=== PATIENT | female | born 1945 ===

== ENCOUNTER 2017-06-25 19:48 | Observation (INO) | payer MEDICARE ==
--- NOTE | 2017-06-25 20:41 | ED PDOC ---
Arrival/HPI - General Chief Complaint: Dizziness/Lightheaded Time Seen by Provider: 06/25/17 20:29 Historian: Patient, Family - History of Present Illness Narrative History of Present Illness (Text): 06/25/17 20:29 A 71 year old female, whose past medical history includes , whom is accompanied by family, presents to the emergency department complaining of dizziness for 5 days. Patient reports dizziness is on and off, describing it as feeling unsteady. Per family, patient fell 3 days ago. 4 days ago, patient was taken to PMD for blood-work. Patient was sent by PMD for evaluation. Patient notes also, experiencing fatigue and weakness, and dizziness worsens when standing up. Also , when laying down, feet feel numb. Patient denies any headache, facial droop, speech changes, or any other complaints at this time. PMD: Dr. Workman Past Medical History - Provider Review Nursing Documentation Reviewed: Yes - Cardiac Hx Cardiac Disorders: Yes - Pulmonary Hx Respiratory Disorders: No - Neurological Hx Neurological Disorder: Yes Hx Vertigo: Yes - HEENT Hx HEENT Disorder: No - Renal Hx Renal Disorder: No - Endocrine/Metabolic Hx Endocrine Disorders: No - Hematological/Oncological Hx Blood Disorders: No - Integumentary Hx Dermatological Disorder: No - Musculoskeletal/Rheumatological Hx Musculoskeletal Disorders: Yes Hx Back Pain: Yes Hx Spinal Stenosis: Yes - Gastrointestinal Hx Gastrointestinal Disorders: Yes Hx Constipation: Yes - Genitourinary/Gynecological Hx Genitourinary Disorders: Yes Hx Incontinence: Yes - Psychiatric Hx Psychophysiologic Disorder: No Hx Substance Use: No - Surgical History Hx Cholecystectomy: Yes Hx Orthopedic Surgery: Yes (L HAND) Other/Comment: COLONOSCOPY - Anesthesia Hx Anesthesia: Yes - Suicidal Assessment Feels Threatened In Home Enviroment: No Family/Social History - Physician Review Nursing Documentation Reviewed: Yes Family/Social History: No Known Family HX Smoking Status: Never Smoked Hx Alcohol Use: No Hx Substance Use: No Allergies/Home Meds Allergies/Adverse Reactions: Allergies Penicillins Allergy (Verified 06/25/17 19:51) RASH Home Medications: Home Meds Medication Instructions Recorded Confirmed Alendronate [Fosamax] 70 mg PO MON 06/22/14 06/25/17 Aspirin [Aspirin Low Dose] 81 mg PO DAILY 06/22/14 06/25/17 Simvastatin 20 mg PO DAILY 06/22/14 06/25/17 Review of Systems - Physician Review All systems were reviewed & negative as marked: Yes - Review of Systems Constitutional: Fatigue, Other (weakness) Neurological: Dizziness, Other (numb feet when laying down). absent: Headache, Speech Changes, Facial Droop Physical Exam Vital Signs Reviewed: Yes Vital Signs Temp Pulse Resp BP Pulse Ox 06/25/17 19:52 98.7 F 88 16 115/78 97 Temperature: Afebrile Blood Pressure: Normal Pulse: Regular Respiratory Rate: Normal Appearance: Positive for: Well-Appearing Pain Distress: None Mental Status: Positive for: Alert and Oriented X 3 - Systems Exam Head: Present: Atraumatic, Normocephalic Neck: Present: Normal Range of Motion Respiratory/Chest: Present: Clear to Auscultation, Good Air Exchange. No: Respiratory Distress, Accessory Muscle Use Cardiovascular: Present: Regular Rate and Rhythm, Normal S1, S2. No: Murmurs Abdomen: No: Tenderness, Distention, Peritoneal Signs Back: Present: Normal Inspection Upper Extremity: Present: Normal Inspection, Normal ROM (5/5). No: Cyanosis, Edema Lower Extremity: Present: NORMAL PULSES (good distal pulses to dorsal aspect; feet warm to touch) Neurological: Present: GCS=15, CN II-XII Intact, Speech Normal. No: Other (no focal deficits; no nystagmus; no ataxia [id number] and [id number].) Skin: Present: Warm, Dry, Normal Color. No: Rashes Psychiatric: Present: Alert, Oriented x 3, Normal Insight, Normal Concentration Medical Decision Making ED Course and Treatment: 06/25/17 20:44 Impression: 71 year old female with dizziness. Plan: -- EKG -- Labs -- Reassess and disposition Progress Notes: EKG: Ordered, reviewed, and independently interpreted the EKG. Rate : 85 BPM Rhythm : NSR Interpretation : 1st AV block Comparison : No previous EKG for comparison. 06/25/17 21:10 Case discussed with SHREYA Felton, whom requests patient be admitted to telemetry floor, and have Dr. Calhoun for neuro consult. Patient also to have cardio consult. - Lab Interpretations Lab Results: 06/25/17 20:47 Lab Results 06/25/17 20:47: WBC 6.7, RBC 4.60, Hgb 13.6, Hct 40.4, MCV 87.8, MCH 29.6, MCHC 33.7, RDW 13.4, Plt Count 308, MPV 9.1, Gran % 58.6, Lymph % (Auto) 30.5, [place] % (Auto) 8.7 H, Eos % (Auto) 2.0, Baso % (Auto) 0.2, Gran # 3.90, Lymph # (Auto ) 2.0, [place] # (Auto) 0.6, Eos # (Auto) 0.1, Baso # (Auto) 0.01 - RAD Interpretation Radiology Orders: 06/25/17 20:49 HEAD W/O CONTRAST [CT] Stat - Scribe Statement The provider has reviewed the documentation as recorded by the Oneidaibbobby Sharif Provider Scribe Attestation: All medical record entries made by the Scribe were at my direction and personally dictated by me. I have reviewed the chart and agree that the record accurately reflects my personal performance of the history, physical exam, medical decision making, and the department course for this patient. I have also personally directed, reviewed, and agree with the discharge instructions and disposition. Disposition/Present on Arrival - Present on Arrival History of DVT/PE: No History of Uncontrolled Diabetes: No Urinary Catheter: No History of Decub. Ulcer: No History Surgical Site Infection Following: None - Disposition Referrals: Lola Workman MD [Primary Care Provider] - Follow up with primary Forms: [employer] (Qatari)
[2017-06-25 21:05] LABS: BASO # 0.01 K/mm3 (0.0-2.0); BASO % 0.2 % (0.0-3.0); EOS # 0.1 (0.0-0.7); GRAN # 3.9 (1.4-6.5); GRAN % 58.6 % (50.0-68.0); HEMOGLOBIN 13.6 g/dL (12.0-16.0); LYMPH % 30.5 % (22.0-35.0); MEAN CELL VOLUME 87.8 fl (80.0-105.0); MEAN CORPUSCULAR HEMOGLOBIN 29.6 pg (25.0-35.0); MEAN CORPUSCULAR HGB CONC 33.7 g/dl (31.0-37.0); MEAN PLATELET VOLUME 9.1 fl (7.0-11.0); MONO # 0.6 (0.1-0.6); MONO % 8.7 % (1.0-6.0); RBC 4.6 10^6/uL (3.5-6.1); RED CELL DISTRIBUTION WIDTH 13.4 % (11.5-14.5); WHITE BLOOD COUNT 6.7 10^3/ul (4.5-11.0)
[2017-06-25 21:15] LABS: ALB/GLOB RATIO 1.1 (1.1-1.8); ALBUMIN 3.9 g/dL (3.0-4.8); ALT/SGPT 28 U/L (7-56); AST/SGOT 24 U/L (14-36); BLOOD UREA NITROGEN 17 mg/dL (7-21); CALCIUM 9.2 mg/dL (8.4-10.5); GFR AFRICAN-AMERICAN > 60; GFR NON-AFRICAN AMERICAN > 60
[2017-06-25 21:21] LABS: PROTHROMBIN TIME 11.1 SECONDS (9.4-12.5)
[2017-06-25 21:22] LABS: INR 0.97 (0.93-1.08); PARTIAL THROMBOPLASTIN TIME 28.7 Seconds (25.1-36.5)
--- NOTE | 2017-06-25 23:03 | CT ---
EXAM: CT Head Without Intravenous Contrast CLINICAL HISTORY: 71 years old, female; Pain; Headache; Headache not specified; Additional info: Ataxia TECHNIQUE: Axial computed tomography images of the head/brain without intravenous contrast. All CT scans at this facility use one or more dose reduction techniques, viz.: automated exposure control; ma/kV adjustment per patient size (including targeted exams where dose is matched to indication; i.e. head); or iterative reconstruction technique. Coronal and sagittal reformatted images were created and reviewed. COMPARISON: No relevant prior studies available. FINDINGS: Brain: There is mild diffuse cerebral atrophy present, consistent with this patient's age. There is mild diffuse heterogeneity of the white matter attenuation, consistent with chronic white matter ischemic changes. No hemorrhage. Ventricles: The ventricular system demonstrates moderate diffuse compensatory enlargement. Bones/joints: Unremarkable. No acute fracture. Soft tissues: Unremarkable. Sinuses: There is minimal mucoperiosteal thickening in the right maxillary sinus, consistent with chronic sinusitis. Mastoid air cells: Unremarkable as visualized. No mastoid effusion. IMPRESSION: Age-related atrophy and chronic white matter ischemic changes, with no evidence of an acute intracranial abnormality.
[2017-06-25 23:15] LABS: HDL CHOLESTEROL 50 mg/dL (29-60)
[2017-06-25 23:27] LABS: LDL CHOLESTEROL 90 mg/dL (0-129)
[2017-06-26 01:24] VITALS: BMI 29.0
[2017-06-26 07:10] LABS: FREE T4 0.98 ng/dL (0.78-2.19)
--- NOTE | 2017-06-26 09:00 | HP ---
HISTORY OF PRESENT ILLNESS: The patient is a 71-year-old female who was seen in the office last week with complaint of feeling very dizzy, feels very unstable as if she is going to fall. She was given Antivert with no significant relief. They started outpatient workup, but she did not get appointments. She came to office again today, but she fell last night and hit her head against the dresser and got cut on both arms. She states when woke up this morning, she could not stand on her feet and lost balance and fell. Denies any headache. No history of numbness or weakness at any body parts. Not severely incontinent. The patient states recently she noted that she has been increasingly forgetful, so she ordered some mail-order medication, Provigil that she has been taking for almost a month. PAST MEDICAL HISTORY: Significant for, 1. Hypertension. 2. Hyperlipidemia. 3. Osteoporosis. ALLERGIES: SHE IS ALLERGIC TO PENICILLIN. MEDICATIONS AT HOME: She is on simvastatin 20 mg daily, aspirin 81 daily, Fosamax 70 mg once a week. REVIEW OF SYSTEMS: Significant for off an on Dizziness, not associated with any palpitation, headache or chest pain. PHYSICAL EXAMINATION: GENERAL: She is awake, alert, oriented, communicative. VITAL SIGNS: She is afebrile, pulse 88, respirations 16, blood pressure 115/78. LUNGS: Bilateral good airflow. No rhonchi or crackle. HEART: S1 and S2 audible. ABDOMEN: Soft. Nontender. No rebound. No guarding. NEUROLOGIC: The patient is awake, alert, oriented, communicative. LABORATORY EXAM: WBC is 6.7, hemoglobin 13, hematocrit 40, platelets 308. PT 11.1, INR 0.97. Chemistry: Sodium 140, potassium 4, chloride 105, CO2 of 26, BUN 17, creatinine 0.7, blood sugar of 166. ASSESSMENT: 1. Intermittent dizziness for 2 weeks resulting in multiple falls. 2. Unstable gait. Rule out neurological versus cardiac event. 3. History of hyperlipidemia. 4. Osteoporosis PLAN: The patient will be placed on observation. Neurological and cardiac workup have been ordered. We will keep the patient on aspirin. Will continue on simvastatin. Cardiology consult by Dr. Slaughter. Neuro consult by Dr. Calhoun has been requested. Lola Workman MD [facility] # [id number]
--- NOTE | 2017-06-26 09:05 | CARD ---
APPROVED REPORT EXAM: Two-dimensional and M-mode echocardiogram with Doppler and color Doppler. INDICATION DIZZINESS 2D DIMENSIONS Left Atrium (2D)3.4 (1.6-4.0cm)IVSd1.2 (0.7-1.1cm) LVDd3.9 (3.9-5.9cm)PWd1.2 (0.7-1.1cm) LVDs2.9 (2.5-4.0cm)FS (%) 26.0 % LVEF (%)51.6 (>50%) M-Mode DIMENSIONS Aortic Root2.70 (2.2-3.7cm)Aortic Cusp Exc.1.60 (1.5-2.0cm) Aortic Valve AoV Peak Oaaehpfe201.0cm/Cathie Peak GR.9mmHg Mitral Valve MV E Lzdoqlcw98.8cm/sMV A Gyartjsg252.0cm/sE/A ratio0.6 TDI E/Lateral E'0.0E/Medial E'0.0 Tricuspid Valve TR Peak [id number]/sRAP JAONSVVK51tuFvKZ Peak Gr.13mmHg [id number] LEFT VENTRICLE The left ventricle is normal size. There is mild concentric left ventricular hypertrophy. The left ventricular function is normal. The left ventricular ejection fraction is within the normal range. There is normal LV segmental wall motion. RIGHT VENTRICLE The right ventricle is normal size. The right ventricular systolic function is normal. ATRIA The left atrium size is normal. The right atrium size is normal. The interatrial septum is intact with no evidence for an atrial septal defect. AORTIC VALVE The aortic valve is normal in structure. No aortic regurgitation is present. There is no aortic valvular stenosis. MITRAL VALVE The mitral valve is normal in structure. There is no mitral valve regurgitation noted. TRICUSPID VALVE The tricuspid valve is normal in structure. There is no tricuspid valve regurgitation noted. PULMONIC VALVE The pulmonary valve is normal in structure. GREAT VESSELS The aortic root is normal in size. The IVC is normal in size and collapses >50% with inspiration. PERICARDIAL EFFUSION There is no pleural effusion. There is no pericardial effusion. <Conclusion> Normal chamber size. Mild concentric LVH. Normal LV systolic function. No valvular abnormalities seen.
--- NOTE | 2017-06-26 09:47 | US ---
PROCEDURE: Bilateral carotid artery duplex ultrasound HISTORY: Carotid stenosis syncope PHYSICIAN(S): Toney Hayes MD. TECHNIQUE: Duplex sonography and color-flow Doppler were used to evaluate the carotid bifurcations and limited segments of the vertebral arteries bilaterally. FINDINGS: The exam is somewhat limited by tortuous vessels. There is mild smooth heterogeneous plaque noted at the carotid bifurcations bilaterally. The peak systolic velocity in the proximal right internal carotid artery is 68 cm/sec. This corresponds to a 20 to 39% proximal right ICA stenosis. Normal systolic velocities are noted in the proximal right external carotid artery. There is antegrade flow in the dominant right vertebral artery. The peak systolic velocity in the proximal left internal carotid artery is 70 cm/sec. This corresponds to a 20 to 39% proximal left ICA stenosis. Normal systolic velocities are noted in the proximal left external carotid artery. There is antegrade flow in the left vertebral artery. IMPRESSION: 1. Bilateral 20-39% proximal ICA stenoses. 2. Antegrade flow in both vertebral arteries.
--- NOTE | 2017-06-26 11:21 | CARD ---
APPROVED REPORT EKG Measurement Heart [id number] <Conclusion> Sinus rhythm with 1st degree AV block Left axis deviation Nonspecific T wave abnormality Prolonged QT Abnormal ECG
--- NOTE | 2017-06-26 14:32 | CON ---
DATE: 06/26/2017 LOCATION: Patient is in room 268, bed 1. REASON FOR CONSULTATION: Syncope. HISTORY OF PRESENT ILLNESS: The patient is a 71-year-old female who was suffering of dizziness off and on. She states at home, her dizziness got worse and she fell down. She knew she was falling down. The patient denies any chest pain, shortness of breath, palpitation, spinning of the room associated with this episode. No history of nausea, vomiting or urinary incontinence. PAST HISTORY: Positive for high cholesterol and osteoporosis. The patient had carpal tunnel surgery, appendectomy and . PERSONAL HISTORY: Denies smoking, denies drinking. MEDICATIONS AT HOME: Simvastatin 20 daily, aspirin 81 daily, Fosamax 70 mg once a week on Mondays. REVIEW OF SYSTEMS: All other systems reviewed, positive mentioned in the history, others were negative. PHYSICAL EXAMINATION VITAL SIGNS: On examination, blood pressure 156/99, earlier pressure of 134/94, yesterday blood pressure 135/72; respirations 20; pulse 82; temperature 98.3. HEENT: Head is normocephalic. Eyes: Pupils normal. Conjunctivae normal. Nose and throat normal. NECK: JVP low. Carotids equal. THORAX: AP diameter normal. LUNGS: Clear. CARDIOVASCULAR: S1 and S2. ABDOMEN: Soft, nontender. No organomegaly. Bowel sounds normal. EXTREMITIES: No clubbing. No cyanosis. LABORATORY DATA: WBC 6.7, hemoglobin 13.6, hematocrit 40.4, platelet 308. Sodium 140, potassium 4, BUN 17, creatinine 0.7. Random sugar 166, repeat sugar 98. AST, ALT, total protein, albumin are normal. Triglyceride 191, cholesterol 176, LDL 90, HDL 50. TSH is 5.49. Had CT scan, no significant abnormality. Carotid ultrasound showed bilateral 20% to 39% proximal ICA stenosis, antegrade flow in both vertebral arteries. EKG showed regular sinus rhythm, prolonged [place], left ventricular hemiblock, nonspecific ST-T changes. Echocardiogram done this morning showed normal chamber size and mild concentric left ventricular hypertrophy, normal LV systolic function and no significant valvular abnormality seen. DIAGNOSES: Dizziness, fall due to dizziness, history of high cholesterol, history of osteoporosis, questionable history of hypertension. PLAN: Will request Orthostatic BP Readings. The patient is getting meclizine 25 mg p.o. t.i.d., aspirin 81 mg daily, atorvastatin 10 mg p.o. daily. We will continue present therapy and we will monitor; so far, on monitor, there is no arrhythmia. Neurology consult with Dr. Calhoun has been already requested. We will continue present therapy and continue to monitor for any arrhythmia. We will follow with you. Yazmin Obrien MD [facility]
--- NOTE | 2017-06-26 15:55 | PN ---
DATE: 06/26/2017 SUBJECTIVE: The patient is 71-year-old, was admitted last night because of persisting dizziness, multiple falls. The patient's family noted that she is having some memory issues and getting forgettable. Also has thickening of the skin. Does not complain of any nausea. PHYSICAL EXAMINATION: VITAL SIGNS: The patient is afebrile, pulse 87, respirations 20, lying blood pressure is 121/80, sitting is 148/78 and standing is 180/94. LUNGS: Bilateral good airflow. No rhonchi or crackles. HEART: S1 and S2 audible. ABDOMEN: Soft, nontender. No rebound, no guarding. NEUROLOGICAL: The patient is awake, alert, oriented, communicative, ambulatory. LABORATORY DATA: Her uric acid is 5.9. Her TSH is 5.49. She has carotid Doppler done that shows bilateral 20 to 39% proximal ICA stenosis. CT scan of the head shows age-related atrophy and chronic white matter ischemic changes with no evidence of acute intracranial abnormality. Her EKG shows abnormal EKG and having prolonged QT interval. ASSESSMENT: 1. Hyperlipidemia. 2. Hypothyroidism. 3. Recurrent dizziness, etiology still unclear and so far workup is negative. 4. Postural hypotension. PLAN: We will get MRI of the brain, start her on Synthroid, awaiting Neuro eval and follow up in a.m. Lola Workman MD
[2017-06-26] MEDS ORDERED: Gadodiamide 287 MG/ML VIAL (15ML) IV ONE (16:28)
--- NOTE | 2017-06-26 17:17 | MRI ---
PROCEDURE: MRI BRAIN WITH AND WITHOUT CONTRAST HISTORY: Dizziness /multiple falls COMPARISON: Noncontrast head CT from 06/25/2017. TECHNIQUE: Multiplanar, multisequence MR images of the brain were obtained with and without intravenous contrast enhancement. 15 mL Omniscan was injected intravenously. FINDINGS: HEMORRHAGE: None DWI: No evidence of an acute or early subacute infarction. BRAIN PARENCHYMA: There are mild chronic microangiopathic changes. There is no mass, mass effect or abnormal extra-axial fluid collection. There is a partially empty sella, otherwise the midline sagittal structures are normal. ENHANCEMENT: No abnormal intracranial enhancement. VENTRICLES: There is moderate global parenchymal volume loss and proportionate enlargement of cortical sulci. There is also ventricular enlargement out of proportion to the sulcal prominence. CRANIUM: Normal bone marrow signal pattern. ORBITS: Grossly unremarkable. PARANASAL SINUSES/MASTOIDS: Predominantly clear. VASCULAR SYSTEM: There are normal signal voids in the larger intracranial arteries. OTHER FINDINGS: None . IMPRESSION: 1. No acute intracranial abnormality. 2. Mild chronic microangiopathic changes. 3. Moderate global parenchymal volume loss. 4. 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 Clinical follow-up is advised.
--- NOTE | 2017-06-26 21:03 | CON ---
DATE: HISTORY OF PRESENT ILLNESS: This is a 71-year-old female and has been suffering off and on with dizziness and dizziness got worse, the patient fell and similar thing happened a year ago. The patient denies any shortness of breath. PAST MEDICAL HISTORY: Cholesterol and osteoporosis, status post carpal tunnel surgery, appendectomy and . REVIEW OF SYSTEMS: A 10-point systems was negative. HOME MEDICATIONS: Simvastatin, aspirin, and Fosamax. PHYSICAL EXAMINATION: HEENT: Normocephalic, atraumatic. NECK: Supple . NEUROLOGIC: Alert, awake, oriented x3. No aphasia. Cranial nerves II to XII are tested. Pupils reactive. EOM intact. Visual field full. No facial asymmetry. Tongue midline. Motor examination spontaneous. Movement of the extremities noted. Deep tendon reflexes 1+. Both plantars are downgoing. Sensory appears intact. Cerebellar, gait normal. IMPRESSION: Dizziness and possibly vertigo, rule out postural hypotension, and workup in progress. The patient's MRI of the head was done, which shows no acute intracranial abnormality, workup in progress. We will follow up. Franky Calhoun MD
[2017-06-27] MEDS ORDERED: Levothyroxine 25 MCG TAB PO SCH (06:00)
[2017-06-27 06:38] VITALS: O2SAT 96
--- NOTE | 2017-06-27 08:30 | CON ---
DATE: 06/26/2017 HISTORY OF PRESENT ILLNESS: This is a 71-year-old white female who was evaluated with a chief complaint of lightheadedness and frequent falls. The patient gives a history of 1 week history where she was lightheaded and a previous history of 3 years ago experiencing similar problems where she received a full workup including MRI, carotid ultrasounds, which were all negative. The patient denied any history of VNGs or audiograms in the past. The patient states that the lightheadedness is nonpositional to movement from side to side. However, she does notice a difference when going from supine to upright position. Orthostatic blood pressures were recorded, which are currently in progress. PHYSICAL EXAMINATION: HEENT: The external auditory canals were normal bilaterally. The tympanic membranes were normal on examination. There was no evidence of spontaneous nystagmus present. Oropharynx was unremarkable. There were no neck masses palpable. Intranasal exam was also unremarkable. IMPRESSION: Our impression is the patient is suffered from lightheadedness, rule out central versus peripheral etiologies. At the current time, the patient is scheduled for MRI of the brain and just underwent carotid ultrasounds to establish vascular insufficiency. If these 2 tests should come back negative, then we would recommend the patient audio and videonystagmographies with vestibular therapy. Also, if the patient fails to respond to the meclizine which she has currently been placed on, she may benefit from a short course of IV steroids 10 mg IV every 6 hours for approximately 3-4 days during the duration of her hospital stay. If you have any further questions regarding the care of this patient, feel free to contact my office. Pascual Cason DO
[2017-06-27 12:07] VITALS: BP 141/91; PULSE 101; RESP 20; TEMP 98.5
--- NOTE | 2017-06-27 14:21 | PN ---
DATE: 06/27/2017 REASON FOR CONSULTATION: Dizziness and syncope, borderline blood pressure. SUBJECTIVE: The patient is lying flat in bed without any chest pain, shortness of breath or dizziness. Denies any chest pain, shortness of breath or palpitation. PHYSICAL EXAMINATION: VITAL SIGNS: Blood pressure 140/80, earlier blood pressure today was 148/89, respirations 18, pulse 70, temperature 98.7. HEENT: Head is normocephalic. Eyes: Pupils normal. Conjunctivae normal. Nose and throat normal. NECK: JVP low. Carotids equal. THORAX: AP diameter normal. LUNGS: Clear. CARDIOVASCULAR: S1 and S2. ABDOMEN: Soft. No tenderness, no organomegaly. Bowel sounds normal. EXTREMITIES: No clubbing. No cyanosis. LABORATORY DATA: WBC 6.7, hemoglobin 13.6, hematocrit 40.4, platelets 308. Sodium 140, potassium 4, BUN 17, creatinine 0.7. AST and ALT normal. Triglycerides 191, cholesterol 176. LDL 90. Free T4 is normal 0.98, TSH is slightly elevated with 5.49. EKG shows sinus rhythm, prolonged SD, left anterior hemiblock, nonspecific ST-T changes. engine monitor did not show any significant arrhythmia. Echo showed normal chamber size with mild concentric left ventricular hypertrophy, normal LV systolic function. No significant valvular abnormality seen. Carotid ultrasound bilateral 20% to 39% proximal ICA stenosis, which is not significant. CAT scan of the head showed age-related atrophy and chronic white matter ischemic changes with no evidence of an acute infarct or intracranial abnormality. DIAGNOSES: Dizziness, fall due to dizziness, history of high cholesterol, history of osteoporosis, borderline hypertension. MEDICATIONS: The patient is getting meclizine 25 mg t.i.d., aspirin 81 mg daily, atorvastatin 10 mg daily, levothyroxine 25 mcg p.o. daily. PLAN: From cardiac point of view, echo has been showing no significant abnormalities related to dizziness or fall. Monitor has been so far no arrhythmia. We will continue present therapy and monitor her blood pressure. If it stays high, then we will put her on medication. The patient was advised to have a stress test to rule out coronary artery disease as outpatient in 2 weeks' time. We will continue to follow with you. Yazmin Obrien MD [facility] # [id number]
--- NOTE | 2017-06-27 20:08 | DS ---
HISTORY OF PRESENT ILLNESS: Patient is a 71 years old, who was admitted because of increasing dizziness, difficulty walking. She has multiple falls at home. Had an MRI done that shows normal pressure hydrocephalus. All her other workup is negative. EKG is normal. Carotid Doppler is unremarkable. PHYSICAL EXAMINATION: GENERAL: Today, she is awake, alert, oriented, communicative. VITAL SIGNS: She is afebrile, pulse 101, respirations 20, blood pressure 141/91. LUNGS: Bilateral good airflow. No rhonchi or crackle. HEART: S1, S2 audible. ABDOMEN: Soft, nontender. No rebound, no guarding. NEUROLOGIC: Patient is awake, alert, oriented, communicative. LABORATORY EXAM: WBC 6.7, hemoglobin 13.6, hematocrit 40.4, platelet of 308. TSH is 5.49. ASSESSMENT: 1. Normal pressure hydrocephalus. 2. Status post multiple falls. 3. Dizziness. 4. Hypothyroidism. PLAN: Patient is going to be discharged home today. I spoke to her . We will follow up with Dr. Calhoun next week and we will make arrangement to see neurosurgeon for possible [employer] shunt. Lola Workman MD
== END 2017-06-27 15:48 | disposition home or self-care (01) ==
LOC: ED 19:48 → ERH 21:12 → INTOOBSV 21:12 → ERH 22:23 → 2RNO 06-26
PROVIDERS: ADMIT Internal Medicine; ATTEND Internal Medicine
DX: I95.1 Orthostatic hypotension (principal); G91.2 (Idiopathic) normal pressure hydrocephalus; E03.9 Hypothyroidism, unspecified; R42 Dizziness and giddiness; E78.00 Pure hypercholesterolemia, unspecified; E78.5 Hyperlipidemia, unspecified; I10 Essential (primary) hypertension; M81.0 Age-related osteoporosis without current pathological fracture; W18.09XA Striking against other object with subsequent fall, initial encounter; Y92.003 Bedroom of unspecified non-institutional (private) residence as the place of occurrence of the external cause; Z79.83 Long term (current) use of bisphosphonates; Z79.899 Other long term (current) drug therapy; Z91.81 History of falling; Z90.49 Acquired absence of other specified parts of digestive tract
CPT/HCPCS: 36415; 70450; 70553; 80053; 80061; 82948; 83036; 84439; 84443; 84550; 85025; 85610; 85730; 93005; 93306; 93880; 97116; 97162; 97530; 99285; A9579; G0378; G8978; G8979